=== PATIENT | female | born 1995 | race Two or more races ===

== ENCOUNTER 2025-03-22 08:30 | Outpatient (AMB) | payer OTHER, SELFPAY ==
--- NOTE | 2025-03-21 11:17 | AMB.OBINITIA ---
Questionnaires Covid-19 Vaccine Questionnaire Has patient been vacinated for Covid-19 Have you been vacinated for Covid-19: Yes Date of last Covid Vaccine or Booster?: 03/22/25 Review of Systems Eyes Eyes: Reports irritation and Reports photophobia
[2025-03-22 08:50] VITALS: BP 116/78; PULSE 80; RESP 16; TEMP 36.8; O2SAT 98; BMI 28.8
--- NOTE | 2025-03-22 08:50 | OBCLNT_ITS ---
Vital Signs 03/22/25 08:50 Height 1.65 m Height Method Stated Weight 78.585 kg Weight Measurement Method Standing Scale BMI 28.8 BP 116/78 Blood Pressure Source Automatic Cuff Blood Pressure Location Left Upper Arm Position Sitting Respiration 16 Pulse 80 Pulse Source Monitor Temp 98.2 F Temp Source Oral Pulse Oximetry (%) 98 Oxygen Delivery Method Room Air Allergies/Home Meds Allergies & Medications Allergies No Known Allergies Allergy (Verified 03/22/25 08:51) Medication Reconciliation No Known Home Medications 03/22/25 [History Confirmed 03/22/25] Intake Visit Data Collection New Patient or Established: New Patient (never been to [facility]) Reason for Visit:: OBI Seen by Clinical Staff ONLY (RN/MA): No Practice Assistant Required: No Do You Feel Safe at Home: Yes Authorities Contacted: N/A PCP or OBGYN visit in last 3 months: Yes Hx Now: Yes Are you currently on any form of Control: No Last menstrual period: 01/11/25 Pain Present Currently: No Pain Scale Used: Rodriguez-Denson/Numerical Pain scale:: 0 Smoking Status Smoking Status: Never smoker Questionnaires Covid-19 Vaccine Questionnaire Has patient been vacinated for Covid-19 Have you been vacinated for Covid-19: No PHQ-9 PHQ-2 Over the last 2 weeks, how often have you been bothered by any of the following problems? 1. Little interest or pleasure in doing things: not at all 2. Feeling down, depressed, or hopeless: not at all Total score: 0 PHQ-9 3. Trouble falling or staying asleep, or sleeping too much: Not at all 4. Feeling tired or having little energy: Not at all 5. Poor appetite or overeating: Not at all 6. Feeling bad about yourself - or that you are a failure or have let yourself or your family down: Not at all 7. Trouble concentrating on things, such as reading the newspaper or watching television: Not at all 8. Moving or speaking so slowly that other people could have noticed? - Or the opposite - being so fidgety or restless that you have been moving around a lot more than usual: not at all 9. Thoughts that you would be better off or of hurting yourself in some way: Not at all Total score: 0 If you checked off any problems, how difficult have these problems made it for you to do your work, take care of things at home, or get along with other people?: not difficult at all Source: Developed by Drs. Yuan Shanks, Nell Arroyo, Gian Guerra and colleagues, with an educational juancarlos from [employer]. Depression screen completed yes Social History Living Situation History Marital Status: Lives With: Family Housing: House Tobacco History Smoking Status: Never smoker Second Hand Smoke Exposure: No Alcohol History Alcohol Intake: Never Domestic Abuse History Do You Feel Safe at Home: Yes History of Present Illness HPI Narrative Chief Complaint Initial visit at 10 weeks gestation Patient is a at 10 weeks gestation, presenting for initial care. She is currently 10 weeks based on her last menstrual period of January 11, with a due date of October 18, 2025. She reports occasional nausea, for w hich she has been taking Unisom. An ultrasound confirmed her at 9 weeks and 3 days, with a heart rate of 162 bpm and normal measurements. She has a history of two previous pregnancies, both resulting in term deliveries via section. Her first was complicated by heart rate issues and lack of progression during induction, requiring delivery. The second section was also performed by Dr. Nichols. Both children are healthy. The patient reports occasional nausea but denies other significant symptoms or concerns at this time. She has been taking vitamins consistently. Her current appears to be progressing normally based on the recent ultrasound findings. Medical History: - No significant medical history reported Surgical History: - section in 2023 - section in 2020, performed due to baby's heart rate issues and lack of progression during induced labor Obstetric History: - GPAL: A0 L2 - First : Term delivery via section due to heart rate issues and lack of progression during induction - Second : Term delivery via section performed by Dr. Nichols Medications: - vitamins daily - Unisom as needed for nausea Social History: - Taking vitamins - Occasional use of Unisom for nausea OB Initial Visit OB Flowsheet OB Flowsheet Initial Weight: Not Recorded Date -?-?-?-?-?-?-?-?-?-?-?-?- EGA Weight BP Alb Glu CTX Pres Fundal ht FHR Mov Dilation Station Effacement Hx Notes Visit Note 03/22/25 -?-?-?-?-?-?-?-?-?-?-?-?- 10w 0d 78.585 kg 116/78 The patient is a at 10 weeks gestation, presenting for her initial visit. She reports occasional nausea managed with Unisom and is taking vitamins regularly. Her last menstrual period was January 11, 2025, establishing an estimated due date of October 18, 2025. A recent ultrasound confirmed an intrauterine at 9 weeks and 3 days with a heart rate of 162 bpm and normal growth. She has a history of two prior sections?one due to heart rate abnormalities and failed induction, and the second also performed by Dr. Nichols. She denies other current symptoms or complications. The appears to be progressing normally. The plan includes continuing vitamins and Unisom as needed, with a recommendation to switch to gummies containing DHA and possibly vitamin D. Labs and genetic testing will be ordered. Two high-resolution ultrasounds with [facility] in [place] are scheduled between 12?14 and 18?20 weeks for anatomic and placental assessment. Patient will return in 4 weeks for follow-up. Menstrual History Menstrual reliability: definite Flow: normal Menstrual regularity: regular Monthly: Yes Age at menarche: 14 On control pills at conception: No OB History : 3 Para: 2 Hx # Pregnancies: 0 Hx Total # of Abortions (Spontaneous & Elective): 0 # of Living Children: 2 Delivery History 1st : Child's name: NOT PROVIDED date: 06/19/21 sex: male Gestational age at delivery (weeks): 41 Delivery type: weight (lbs): 3628.739 g Delivery complications: NA History of depression before or after : No 2nd : Child's name: NOT PROVIDED date: 10/01/23 sex: male Gestational age at delivery (weeks): 39 Delivery type: weight (lbs): 3175.147 g History of depression before or after : No Infection History & Risk Evaluation History of STDs: none HIV risk evaluation: low risk Hepatitis B risk evaluation: low risk Patient or partner has history of Genital Herpes: No Varicella/chicken pox status: immunized Genetic Screening & History Genetic Screening/Teratology Counseling - Includes patient, baby's father, or anyone in either family with: 1. Patient's age 35 years or older as of estimated date of delivery: No 2. Thalassemia (Korean, Kiswahili, Mediterranean, or Background); MCV less than 80: No 3. Neural Tube Defect (Meningomyelocele, Spina Bifida, or Anencephaly): No 4. Congenital Heart Defect: No 5. Down Syndrome: No 6. Jonathan-Sachs (Ashkenazi Christian, Cajun, Persian Randall): No 7. Jovi Disease (Ashkenazi Christian): No 8. Familial Dysautonomia (Ashkenazi Christian): No 9. Sickle Cell Disease or Trait (): No 10. Hemophilia or other blood disorders: No 11. Muscular Dystrophy: No 12. Cystic Fibrosis: No 13. Marked Tree's Chorea: No 14. Mental Retardation/Autism: No 15. Other inherited genetic or chromosomal disorder: No 16. Maternal Metabolic Disorder (EG,TYPE 1 Diabetes, PKU): No 17. Patient or baby's father had a child with defects not listed above: No 18. Recurrent loss or a stillbirth: No 19. Medications (including supplements, vitamins, herbs or otc drugs)/illicit/recreational drugs/alcohol since last menstrual period: No 20. Any other: No Infection History 1. Live with someone with TB or exposed to TB: No 2. Rash or viral illness since last menstrual period: No 3. Hepatitis B,C: No Other (see comments) Source: [employer] Exam General Limitations: no limitations General Appearance: alert, in no apparent distress and comfortable Head Head exam: atraumatic and normocephalic Eye Eye exam: Present normal appearance, PERRL and EOMI Neck Neck exam: Present normal inspection and full ROM Chest Chest inspection: Present normal inspection and symmetric chest wall rise; Absent tenderness Resp Respiratory exam: Present normal lung sounds bilaterally; Absent respiratory distress Card Cardiovascular exam: Present regular rate and normal rhythm Abdominal Abdominal exam: Present soft and normal bowel sounds; Absent tenderness, guarding, rebound or rigidity Neuro Neurological exam: Present alert and oriented X3 Psych Psychiatric exam: Present normal affect Office Procedures OB Clinic LOC & Office Proc's Nursing/Assessment Patient Status: Initial/New Patient OB Clinic Nursing Assessment: Medication Reconciliation, Update PMH in EMR and Vital Signs OB Clinic Coordination of Care: Education Complex Pt/Fam, Consent,records obtained, informed consent, Lab and Imaging orders, Results/Orders obtained and Staff clarify orders Special Needs: Heart tones New Patient Charge New Patient Point Assignment: [id number] New Patient Point Charge: [employer] IN[employer] LIEUTENANT Level 3 ([id number]) Assessment & Plan Diagnosis / Problem List (1) Supervision of high risk , unspecified, first trimester: Status: Acute (2) Maternal care for low transverse scar from previous delivery: Status: Acute Plan Intrauterine Assessment: Patient is a 10-week 3 para 2 based on last menstrual period of January 11, with an estimated due date of October 18, 2025. Ultrasound confirms intrauterine at 9 weeks and 3 days with normal heart rate of 162 bpm and appropriate measurements. Patient has a history of two previous C- sections in 2020 and 2023, with the first due to heart rate issues and lack of progression during induction. Plan: - Continue vitamins - Continue Unisom as needed for nausea - Recommend gummies with DHA and possibly vitamin D - Order blood work and genetic testing - Schedule two high-resolution ultrasounds at [facility] in [place] at 12-14 weeks and 18-20 weeks to assess anatomy and placenta position - Follow-up appointment in 4 weeks
== END 2025-03-22 09:24 | disposition home or self-care (01) ==
LOC: HODSOBC 08:30
PROVIDERS: Supervising Provider Obstetrics & Gynecology; Visit Provider Obstetrics & Gynecology
DX: O09.291 Supervision of pregnancy with other poor reproductive or obstetric history, first trimester (principal); O34.211 Maternal care for low transverse scar from previous cesarean delivery; Z3A.10 10 weeks gestation of pregnancy
CPT/HCPCS: 99203; G0463

== ENCOUNTER 2025-04-19 08:57 | Outpatient (AMB) | payer OTHER, SELFPAY ==
--- NOTE | 2025-04-19 09:11 | AMB.OBVISIT ---
Vital Signs 04/19/25 09:13 Height 1.65 m Height Method Stated Weight 79.152 kg Weight Measurement Method Standing Scale BMI 29.0 BP 115/76 Blood Pressure Source Automatic Cuff Blood Pressure Location Left Upper Arm Position Sitting Respiration 18 Pulse 88 Pulse Source Monitor Temp 98.2 F Temp Source Oral Pulse Oximetry (%) 98 Oxygen Delivery Method Room Air Allergies/Home Meds Allergies & Medications Allergies No Known Allergies Allergy (Verified 04/19/25 09:15) Medication Reconciliation No Known Home Medications 03/22/25 [History Confirmed 04/19/25] Intake Visit Data Collection New Patient or Established: Established Patient (seen at [facility] within 3 years) Reason for Visit:: OBC Seen by Clinical Staff ONLY (RN/MA): No Silviculture Teacher Required: No Do You Feel Safe at Home: Yes Authorities Contacted: N/A PCP or OBGYN visit in last 3 months: Yes Date of Last PCP or OBGYN visit: 03/22/25 Hx Now: Yes Are you currently on any form of Control: No Pain Present Currently: No Pain Scale Used: Rodriguez-Denson/Numerical Pain scale:: 0 Smoking Status Smoking Status: Never smoker Questionnaires Covid-19 Vaccine Questionnaire Has patient been vacinated for Covid-19 Have you been vacinated for Covid-19: Yes PHQ-9 PHQ-2 Over the last 2 weeks, how often have you been bothered by any of the following problems? 1. Little interest or pleasure in doing things: not at all 2. Feeling down, depressed, or hopeless: not at all Total score: 0 PHQ-9 3. Trouble falling or staying asleep, or sleeping too much: Not at all 4. Feeling tired or having little energy: Not at all 5. Poor appetite or overeating: Not at all 6. Feeling bad about yourself - or that you are a failure or have let yourself or your family down: Not at all 7. Trouble concentrating on things, such as reading the newspaper or watching television: Not at all 8. Moving or speaking so slowly that other people could have noticed? - Or the opposite - being so fidgety or restless that you have been moving around a lot more than usual: not at all 9. Thoughts that you would be better off or of hurting yourself in some way: Not at all Total score: 0 If you checked off any problems, how difficult have these problems made it for you to do your work, take care of things at home, or get along with other people?: not difficult at all Source: Developed by Drs. Yuan Shanks, Nell Arroyo, Gian Guerra and colleagues, with an educational juancarlos from [employer]. Depression screen completed yes Social History Living Situation History Marital Status: Lives With: Family Housing: House Tobacco History Smoking Status: Never smoker Second Hand Smoke Exposure: No Alcohol History Alcohol Intake: Never Domestic Abuse History Do You Feel Safe at Home: Yes Care OB Visit Log OB Flowsheet Initial Weight: Not Recorded Date <del>?</del> EGA Weight BP Alb Glu CTX Pres Fundal ht FHR Mov Dilation Station Effacement Hx Notes Visit Note 03/22/25 <del>?</del> 10w 0d 78.585 kg 116/78 The patient is a at 10 weeks gestation, presenting for her initial visit. She reports occasional nausea managed with Unisom and is taking vitamins regularly. Her last menstrual period was January 11, 2025, establishing an estimated due date of October 18, 2025. A recent ultrasound confirmed an intrauterine at 9 weeks and 3 days with a heart rate of 162 bpm and normal growth. She has a history of two prior sections?one due to heart rate abnormalities and failed induction, and the second also performed by Dr. Nichols. She denies other current symptoms or complications. The appears to be progressing normally. The plan includes continuing vitamins and Unisom as needed, with a recommendation to switch to gummies containing DHA and possibly vitamin D. Labs and genetic testing will be ordered. Two high-resolution ultrasounds with [facility] in [place] are scheduled between 12?14 and 18?20 weeks for anatomic and placental assessment. Patient will return in 4 weeks for follow-up. 04/19/25 <del>?</del> 14w 0d 79.152 kg 115/76 - She reports feeling good overall with no current complaints. - She denies nausea, vomiting, cramping, or spotting. - AFP test to be completed anytime before 20 weeks (tests for spinal cord and brain defects) - Follow up appointment in 4 weeks - 20-week ultrasound appointment with Dr. Kiana THAYER Calculator Estimated Delivery Date Method Current WG Current Estimate 10/18/25 LMP (Certain) 14w 0d Notes Visit Date: 04/19/25 Last Updated by: Dung Solo MD - Date: 03/22/2025 - Hepatitis B: Negative - Hepatitis C: Negative - Blood group: AB positive - Antibody screen: Negative - HIV: Negative - Gonorrhea: Negative - Chlamydia: Negative - Hemoglobin: 13.0 g/dL - Urinalysis: Negative for infections - Maternal ultrasound (04/11/2025): - Nuchal translucency: Within normal limits - [place] rump length: Consistent with estimated due date - Early anatomy survey: Within normal limits - heart rate: 144 bpm (normal) - anatomy: Head, shoulders, arms, body, legs all appear normal - Maternity testing: Negative x3 Office Procedures OBC Clinic LOC & Office Proc's Nursing/Assessment Patient Status: Established Patient OB Clinic Nursing Assessment: Medication Reconciliation, Update PMH in EMR and Vital Signs OB Clinic Coordination of Care: Consent,records obtained, informed consent, Education Simp Pt/Fam, Lab and Imaging orders, Results/Orders obtained and Staff clarify orders Special Needs: Heart tones Established Patient Charge Established Patient Point Assignment: 110 Established Patient Point Charge: EP Level 3 (80-115) Assessment & Plan Diagnosis / Problem List (1) Maternal care for low transverse scar from previous delivery: Status: Acute (2) Supervision of high risk , unspecified, first trimester: Status: Acute Plan Problem List - , 14 weeks and 0 days Assessment Intrauterine at 14 weeks 0 days gestation by LMP in a patient with reassuring development. Maternal- ultrasound performed on 04/11/2025 demonstrated normal nuchal translucency, crown-rump length consistent with estimated due date, and normal early anatomy survey. heart rate of 144 bpm is within normal limits with normal anatomy including head, shoulders, arms, body, and legs. Initial laboratory studies completed on 03/22/2025 show negative hepatitis B and C, negative HIV, negative gonorrhea and chlamydia, negative antibody screen, hemoglobin 13.0 g/dL, negative urinalysis for infections, and negative maternity testing times 3. Patient reports no nausea, vomiting, cramping, or spotting. Plan - AFP test to be completed anytime before 20 weeks (tests for spinal cord and brain defects) - Follow up appointment in 4 weeks - 20-week ultrasound appointment with Dr. Bruno This format is not applicable as the patient is at 14 weeks gestational age, which is less than 20 weeks, and this appears to be a routine visit rather than an initial visit.
[2025-04-19 09:13] VITALS: BP 115/76; PULSE 88; RESP 18; TEMP 36.8; O2SAT 98; BMI 29.0
== END 2025-04-19 09:21 | disposition home or self-care (01) ==
LOC: HODSOBC 08:57
PROVIDERS: Supervising Provider Obstetrics & Gynecology; Visit Provider Obstetrics & Gynecology
DX: O09.292 Supervision of pregnancy with other poor reproductive or obstetric history, second trimester (principal); O34.211 Maternal care for low transverse scar from previous cesarean delivery; Z3A.14 14 weeks gestation of pregnancy
CPT/HCPCS: 99213; G0463

== ENCOUNTER 2025-06-10 10:15 | Outpatient (AMB) | payer OTHER, SELFPAY ==
[2025-06-10 10:22] VITALS: BP 110/72; PULSE 81; RESP 18; TEMP 36.2; O2SAT 98; BMI 30.7
--- NOTE | 2025-06-10 10:22 | OBCLNT_ITS ---
Vital Signs 06/10/25 10:22 Height 1.65 m Height Method Stated Weight 83.518 kg Weight Measurement Method Standing Scale BMI 30.7 BP 110/72 Blood Pressure Source Automatic Cuff Blood Pressure Location Left Upper Arm Position Sitting Respiration 18 Pulse 81 Pulse Source Monitor Temp 97.2 F Temp Source Oral Pulse Oximetry (%) 98 Oxygen Delivery Method Room Air Allergies/Home Meds Allergies & Medications Allergies No Known Allergies Allergy (Verified 06/10/25 10:23) Medication Reconciliation No Known Home Medications 03/22/25 [History Confirmed 06/10/25] Immunizations Immunizations Flu Vaccine in the Last 12 Months: No Flu Vaccine Exclusion Criteria: No Exclusion Criteria Care OB Visit Log OB Flowsheet Initial Weight: Not Recorded Date -?-?-?-?-?-?-?-?-?-?-?-?- EGA Weight BP Alb Glu CTX Pres Fundal ht FHR Mov Dilation Station Effacement Hx Notes Visit Note 03/22/25 -?-?-?-?-?-?-?-?-?-?-?-?- 10w 0d 78.585 kg 116/78 The patient is a at 10 weeks gestation, presenting for her initial visit. She reports occasional nausea managed with Unisom and is taking vitamins regularly. Her last menstrual period was January 11, 2025, establishing an estimated due date of October 18, 2025. A recent ultrasound confirmed an intrauterine at 9 weeks and 3 days with a heart rate of 162 bpm and normal growth. She has a history of two prior sections?one due to heart rate abnormalities and failed induction, and the second also performed by Dr. Nichols. She denies other current symptoms or complications. The appears to be progressing normally. The plan includes continuing vitamins and Unisom as needed, with a recommendation to switch to gummies containing DHA and possibly vitamin D. Labs and genetic testing will be ordered. Two high-resolution ultrasounds with [facility] in [place] are scheduled between 12?14 and 18?20 weeks for anatomic and placental assessment. Patient will return in 4 weeks for follow-up. 04/19/25 -?-?-?-?-?-?-?-?-?-?-?-?- 14w 0d 79.152 kg 115/76 - She reports feeling good overall with no current complaints. - She denies nausea, vomiting, cramping, or spotting. - AFP test to be completed anytime before 20 weeks (tests for spinal cord and brain defects) - Follow up appointment in 4 weeks - 20-week ultrasound appointment with Dr Fazal Bruno 06/10/25 -?-?-?-?-?-?-?-?-?-?-?-?- 21w 3d 83.518 kg 110/72 absent cephalic 22 137 active - She has a history of previous section. - Last seen at 14 weeks gestation. - She reports having headaches for a whi le, but these have subsided. - She denies nausea, vomiting, or other current symptoms. - She reports feeling good overall. - Return in 4 weeks for routine follow-up - Complete 1-hour glucose tolerance test for diabetes screening 3-4 days before next appointment (due around 24 weeks gestation) - Perform glucose test at [facility] in the morning on empty stomach, drink provide d solution, and have blood drawn one hour later JEOVANY Calculator Estimated Delivery Date Method Current WG Current Estimate 10/18/25 LMP (Certain) 21w 5d Expected Delivery Route/Plan RCS Notes Visit Date: 06/10/25 Last Updated by: Dung Solo MD - Date: 05/31/2025 - Maternal- ultrasound: Single living fetus, clinical gestational age 20 weeks corresponding to established JEOVANY, composite age 20 weeks 0 days, estimated weight 358 grams (74th percentile), amniotic fluid within normal limits, detailed evaluation with no structural abnormalities, anterior placenta with no previa and no evidence of accreta spectrum, no lower uterine segment bulging or interruption, no hypervascularity, normal retroplacental hyperechoic zone, cervical length 3.4 cm with no funneling, presentation transverse, normal anatomy Visit Date: 04/19/25 Last Updated by: Dung Solo MD - Date: 03/22/2025 - Hepatitis B: Negative - Hepatitis C: Negative - Blood group: AB positive - Antibody screen: Negative - HIV: Negative - Gonorrhea: Negative - Chlamydia: Negative - Hemoglobin: 13.0 g/dL - Urinalysis: Negative for infections - Maternal ultrasound (04/11/2025): - Nuchal translucency: Within normal limits - [place] rump length: Consistent with estimated due date - Early anatomy survey: Within normal limits - heart rate: 144 bpm (normal) - anatomy: Head, shoulders, arms, body, legs all appear normal - Maternity testing: Negative x3 Office Procedures [facility] Clinic LOC & Office Proc's Nursing/Assessment Patient Status: Established Patient OB Clinic Nursing Assessment: Medication Reconciliation, Update PMH in EMR and Vital Signs OB Clinic Coordination of Care: Consent,records obtained, informed consent, Education Simp Pt/Fam, Lab and Imaging orders, Results/Orders obtained and Staff clarify orders Special Needs: Heart tones Established Patient Charge Established Patient Point Assignment: 110 Established Patient Point Charge: EP Level 3 (80-115) Assessment & Plan Diagnosis / Problem List (1) Maternal care for low transverse scar from previous delivery: Status: Acute Plan Problem List - - Previous delivery Assessment 21 weeks 3 days intrauterine in a 3 para 2 patient with history of prior section. Recent maternal- ultrasound from 05/31/2025 demonstrates single living fetus with appropriate growth parameters (358 grams, 74th percentile), normal anatomy survey with no structural abnormalities identified, and favorable placental positioning with anterior placenta, no previa, and no evidence of accreta spectrum. Cervical length adequate at 3.4 centimeters without funneling. Patient reports resolution of previous headaches and denies current nausea, vomiting, or other concerning symptoms. heart rate 137 bpm, which is within normal limits. Plan - Return in 4 weeks for routine follow-up - Complete 1-hour glucose tolerance test for diabetes screening 3-4 days before next appointment (due around 24 weeks gestation) - Perform glucose test at [facility] in the morning on empty stomach, drink provided solution, and have blood drawn one hour later 1. Progress Reviewed gestational age at 21 weeks 3 days, growth showing 358 grams at 74th percentile matching clinical dates, and heart rate of 137 bpm which is normal. Planned frequent visits (every 2 weeks until 36 weeks, then weekly). 2. Instructed patient to monitor movements and report decreases immediately. 3. Testing Counseled on routine third-trimester labs per guidelines including glucose screening test ordered for diabetes screening to be done 3-4 days before next appointment. Discussed potential need for ultrasound or monitoring based on risk factors. 4. Preeclampsia Precaution Educated on preeclampsia signs: severe headache, vision changes, right upper quadrant pain, sudden swelling. Advised urgent reporting of symptoms and discussed blood pressure monitoring if high risk. 5. Labor Precautions Reviewed labor signs: regular contractions, pelvic pressure, back pain, bleeding, or fluid leakage. Instructed to seek immediate care for these symptoms. 6. Lifestyle and Delivery Preparation Reinforced vitamins, nutrition, and safe activity. Discussed plan, pain management, and . Advised on labor preparation (e.g., hospital bag) and expectations. 7. Psychosocial Support Assessed emotional well-being and offered resources for mental health or parenting support.
== END 2025-06-10 10:44 | disposition home or self-care (01) ==
LOC: HODSOBC 10:15
PROVIDERS: Supervising Provider Obstetrics & Gynecology; Visit Provider Obstetrics & Gynecology
DX: O09.292 Supervision of pregnancy with other poor reproductive or obstetric history, second trimester (principal); O34.211 Maternal care for low transverse scar from previous cesarean delivery; Z3A.21 21 weeks gestation of pregnancy
CPT/HCPCS: 99213; G0463

== ENCOUNTER 2025-07-05 11:14 | Outpatient (AMB) | payer OTHER, SELFPAY ==
[2025-07-05 11:35] VITALS: BP 107/71; PULSE 86; RESP 16; TEMP 36.3; O2SAT 97; BMI 31.2
--- NOTE | 2025-07-05 11:35 | AMB.OBPNC ---
Vital Signs 07/05/25 11:35 Height 1.65 m Height Method Stated Weight 84.992 kg Weight Measurement Method Standing Scale BMI 31.2 BP 107/71 Blood Pressure Source Automatic Cuff Blood Pressure Location Left Upper Arm Position Sitting Respiration 16 Pulse 86 Pulse Source Monitor Temp 97.4 F Temp Source Oral Pulse Oximetry (%) 97 Oxygen Delivery Method Room Air Allergies/Home Meds Allergies & Medications Allergies No Known Allergies Allergy (Verified 07/05/25 11:36) Medication Reconciliation vitamins-iron fumarate 66 mg iron-folic acid 1 mg tablet tab PO 07/05/25 [History Confirmed 07/05/25] Immunizations Immunizations Flu Vaccine in the Last 12 Months: No Flu Vaccine Exclusion Criteria: Refused by Patient Care OB Visit Log OB Flowsheet Initial Weight: Not Recorded Date <del>?</del> EGA Weight BP Alb Glu CTX Pres Fundal ht FHR Mov Dilation Station Effacement Hx Notes Visit Note 03/22/25 <del>?</del> 10w 0d 78.585 kg 116/78 The patient is a at 10 weeks gestation, presenting for her initial visit. She reports occasional nausea managed with Unisom and is taking vitamins regularly. Her last menstrual period was January 11, 2025, establishing an estimated due date of October 18, 2025. A recent ultrasound confirmed an intrauterine at 9 weeks and 3 days with a heart rate of 162 bpm and normal growth. She has a history of two prior sections?one due to heart rate abnormalities and failed induction, and the second also performed by Dr. Nichols. She denies other current symptoms or complications. The appears to be progressing normally. The plan includes continuing vitamins and Unisom as needed, with a recommendation to switch to gummies containing DHA and possibly vitamin D. Labs and genetic testing will be ordered. Two high-resolution ultrasounds with [facility] in [place] are scheduled between 12?14 and 18?20 weeks for anatomic and placental assessment. Patient will return in 4 weeks for follow-up. 04/19/25 <del>?</del> 14w 0d 79.152 kg 115/76 - She reports feeling good overall with no current complaints. - She denies nausea, vomiting, cramping, or spotting. - AFP test to be completed anytime before 20 weeks (tests for spinal cord and brain defects) - Follow up appointment in 4 weeks - 20-week ultrasound appointment with Dr. Bruno 06/10/25 <del>?</del> 21w 3d 83.518 kg 110/72 absent cephalic 22 137 active - She has a history of previous section. - Last seen at 14 weeks gestation. - She reports having headaches for a while, but these have subsided. - She denies nausea, vomiting, or other current symptoms. - She reports feeling good overall. - Return in 4 weeks for routine follow-up - Complete 1-hour glucose tolerance test for diabetes screening 3-4 days before next appointment (due around 24 weeks gestation) - Perform glucose test at [facility] in the morning on empty stomach, drink provided solution, and have blood drawn one hour later 07/05/25 <del>?</del> 25w 0d 84.992 kg 107/71 absent cephalic 25 145 active - She reports occasional sharp pain on her right side, particularly when twisting or changing positions while lying down. - Pain occurs mainly when laying one way and trying to switch to the other side - Pain is positional in nature - She denies cramping, contractions, or other issues. - Patient reports feeling activity, with more movement noted on the lower right side. - Schedule section at 39 weeks gestation (one week before due date) - Coordinate with Dr. Fabian for section based on her call schedule, to be determined one month prior to procedure date - Follow-up appointment in 4 weeks - Patient to obtain binder from [facility] for ligament pain support - Call to obtain 20-week ultrasound report - Patient has upcoming 32-week appointment scheduled JEOVANY Calculator Estimated Delivery Date Method Current WG Current Estimate 10/18/25 LMP (Certain) 25w 0d Expected Delivery Route/Plan RCS Notes Visit Date: 06/10/25 Last Updated by: Dung Solo MD - Date: 05/31/2025 - Maternal- ultrasound: Single living fetus, clinical gestational age 20 weeks corresponding to established JEOVANY, composite age 20 weeks 0 days, estimated weight 358 grams (74th percentile), amniotic fluid within normal limits, detailed evaluation with no structural abnormalities, anterior placenta with no previa and no evidence of accreta spectrum, no lower uterine segment bulging or interruption, no hypervascularity, normal retroplacental hyperechoic zone, cervical length 3.4 cm with no funneling, presentation transverse, normal anatomy Visit Date: 04/19/25 Last Updated by: Dung Solo MD - Date: 03/22/2025 - Hepatitis B: Negative - Hepatitis C: Negative - Blood group: AB positive - Antibody screen: Negative - HIV: Negative - Gonorrhea: Negative - Chlamydia: Negative - Hemoglobin: 13.0 g/dL - Urinalysis: Negative for infections - Maternal ultrasound (04/11/2025): - Nuchal translucency: Within normal limits - [employer] rump length: Consistent with estimated due date - Early anatomy survey: Within normal limits - heart rate: 144 bpm (normal) - anatomy: Head, shoulders, arms, body, legs all appear normal - Maternity testing: Negative x3 Office Procedures OBC Clinic LOC & Office Proc's Nursing/Assessment Patient Status: Established Patient OB Clinic Nursing Assessment: Medication Reconciliation, Update PMH in EMR and Vital Signs OB Clinic Coordination of Care: Complex Care and Chronic Disease 1-5, Consent,records obtained, informed consent, Education Simp Pt/Fam, 1 Ins Authorization, Lab and Imaging orders, Results/Orders obtained and Staff clarify orders Special Needs: Heart tones Established Patient Charge Established Patient Point Assignment: 150 Established Patient Point Charge: EP Level 4 (120-155) Assessment & Plan Diagnosis / Problem List (1) Maternal care for low transverse scar from previous delivery: Status: Acute (2) Supervision of high risk , unspecified, first trimester: Status: Acute Plan Problem List - Round ligament pain Assessment 25-week gestational age in a patient with history of prior sections, currently experiencing intermittent sharp right-sided pain consistent with round ligament pain that is positional in nature. One-hour glucose tolerance test result of 97 mg/dL is within normal limits, indicating negative screening for gestational diabetes. heart rate of 160 bpm is reassuring and within normal range for gestational age. Plan - Schedule section at 39 weeks gestation (one week before due date) - Coordinate with Dr. Fabian for section based on her call schedule, to be determined one month prior to procedure date - Follow-up appointment in 4 weeks - Patient to obtain binder from [facility] for ligament pain support - Call to obtain 20-week ultrasound report - Patient has upcoming 32-week appointment scheduled 1. Progress Reviewed gestational age at 25 weeks 0 days, growth, and heart rate of 160 bpm which is normal. Planned frequent visits (every 2 weeks until 36 weeks, then weekly) with next visit in 4 weeks. 2. Instructed patient to monitor movements and report decreases immediately. 3. Testing One-hour glucose tolerance test result was 97 (normal). Counseled on routine third-trimester labs per guidelines. Discussed ultrasound at 32 weeks and awaiting 20-week ultrasound report from [facility] consultation. 4. Preeclampsia Precaution Educated on preeclampsia signs: severe headache, vision changes, right upper quadrant pain, sudden swelling. Advised urgent reporting of symptoms and discussed blood pressure monitoring if high risk. 5. Labor Precautions Reviewed labor signs: regular contractions, pelvic pressure, back pain, bleeding, or fluid leakage. Instructed to seek immediate care for these symptoms. Patient counseled on round ligament pain management for sharp right-sided pain with position changes. 6. Lifestyle and Delivery Preparation Reinforced vitamins, nutrition, and safe activity. Recommended binder for ligament pain support. Discussed section planning at 39 weeks (one week before due date) and coordinating with Dr. Loja based on her call schedule. 7. Psychosocial Support Assessed emotional well-being and offered resources for mental health or parenting support.
== END 2025-07-05 11:40 | disposition home or self-care (01) ==
PROVIDERS: Supervising Provider Obstetrics & Gynecology; Visit Provider Obstetrics & Gynecology
DX: O09.292 Supervision of pregnancy with other poor reproductive or obstetric history, second trimester (principal); O34.211 Maternal care for low transverse scar from previous cesarean delivery; O09.892 Supervision of other high risk pregnancies, second trimester; O99.891 Other specified diseases and conditions complicating pregnancy; R10.21 Pelvic and perineal pain right side; Z3A.25 25 weeks gestation of pregnancy; Z28.21 Immunization not carried out because of patient refusal
CPT/HCPCS: 99214; G0463